=== PATIENT | male | born 1980 | race Caucasian/White ===

== ENCOUNTER 2018-11-27 21:37 | Emergency (ER) | payer SELFPAY ==
[~2018-11-27] VITALS: Ht 180.3 cm; Wt 72.6 kg
[~2018-11-27 21:37] MED LIST: MYSOLINE50 M1 PO
[2018-11-27] MEDS ORDERED: PROSCAR5 MG ORAL (21:39)
[2018-11-27 21:40] VITALS: BP 112/77
--- NOTE | 2018-11-27 21:40 | NUR ---
ED Nurse Note: pt is brought in by ambulance accompanied by [employer]. pt has been drinking alcohol and pills of finasteride. unknown amount. pt has hx of seizure and depression. pt is alert but noted with confusion. unable to carry on a full conversation. VSS.
--- NOTE | 2018-11-27 21:52 | Emergency Room Report ---
History of Present Illness General Chief Complaint: Substance Abuse Source: Patient Present Illness HPI This is a 38-year-old male with psychiatric history. He presents with possible overdose. Few hours ago he texted his mom with a note saying "I am sorry." Mom and friend unable to contact him by calling him. They called 911 wellness check. Please officer have to kicking the door of his apartment to get to him. Patient admits to using alcohol. He told EMS that he took 10 pills. The bottle was unlabeled. He will not tell them what they were for. He said that was prescribed to him. Based on the pill identifier, it was finasteride 1 mg. Patient is very vague in his history. He is just told me that he took the pill because. He has no reason. He would not confirm or deny suicidal thoughts. No other injury. Denies any other drug use other than alcohol. Allergies: Coded Allergies: No Known Allergies (Unverified , 11/27/18) Patient History Past Medical History: see triage record, old chart reviewed, psych hx, depression, reviewed nursing documentation Past Surgical History: none Family History: none Social History: ETOH Immunizations: other Reviewed Nursing Documentation: PMH: Agreed; PSxH: Agreed Nursing Documentation-PMH History Of Psychiatric Problem: Yes - despression, anixety Hx Seizures: Yes Review of Systems ENT: Denies: sore throat Cardiovascular: Denies: chest pain, palpitations Gastrointestinal/Abdominal: Denies: nausea, vomiting, diarrhea Musculoskeletal: Denies: back problems Skin: Denies: rash Psychiatric: Reports: prior hx Neurological: Denies: BAHENA, seizures All Other Systems: negative except mentioned in HPI Physical Exam Vital Signs Date Time Temp Pulse Resp B/P (MAP) Pulse Ox O2 Delivery O2 Flow Rate FiO2 11/27/18 21:30 97.2 86 16 138/98 (111) 98 Room Air Vitals normal Sp02 EP Interpretation: reviewed, normal General Appearance: alert/responsive, no apparent distress, non-toxic Head: normocephalic, atraumatic Eyes: PERRL, EOMI ENT: oropharynx normal Neck: supple/symm/no masses Respiratory: effort normal, no rhonchi, no wheezing Cardiovascular: no murmur, gallop, rub Gastrointestinal: non-tender, no mass, non-distended, no rebound/guarding, normal bowel sounds Musculoskeletal: gait & station normal Neurologic: oriented x3, sensory intact, motor strength/tone normal Psychiatric: other - Depressed affect Skin: no rash, normal palpation Medical Decision Making Diagnostic Impression: Primary Impression: Alcohol intoxication Qualified Codes: F10.920 - Alcohol use, unspecified with intoxication, uncomplicated ER Course Patient presents with altered mental status and questionable overdose/ depression. Alcohol level is very high. I spoke extensively with patient, mother who called from [place] and his brother who came here. Mother was the one who called his friend to check on him because he was hyperventilating and keeps saying that he cannot do this anymore and then his phone went . I suspect that his alcohol level is very high. He admits to having a drinking problem. Has never been in rehab. After a few hours, he is alert and oriented x4. Speech is clear. No ataxia with walking. He does admit to having some withdrawal symptoms when he stopped drinking. He does not want to stay. He will be going home with his brother. His brother said that he will keep an eye on him tonight. He will call rehab center in the morning to get him help. Patient denies suicidal thoughts homicidal thought. There is no evidence of any substance abuse. There is no evidence of any overdose. Patient has a bottle of finasteride. His brother said he is taking finasteride for hair growth. At this moment in time, I see no criteria for 5150. This patient is a chronic risk of self injury due to poor impulse control, limited coping skills, and judgment intermittently impaired by intoxication. I believe that the available clinical evidence to suggest that these characteristics derived primarily from personality disorder and are likely very stable over time. Hospitalization would likely attenuate risk of self-harm only during nursing home period, without lasting risk reduction. Serious self-harm , while possible, would likely be inadvertent, and because of impulsivity, and foreseeable. For these reasons, I do not believe hospitalization would provide meaningful reduction in risk of self-harm. Rhythm Strip Diag. Results EP Interpretation: yes Rate: 80 Rhythm: NSR, no PVC's, no ectopy Last Vital Signs Date Time Temp Pulse Resp B/P (MAP) Pulse Ox O2 Delivery O2 Flow Rate FiO2 11/27/18 21:30 97.2 86 16 138/98 (111) 98 Room Air Status: improved Disposition: HOME, SELF-CARE Condition: Stable Scripts Chlordiazepoxide (Chlordiazepoxide HCl) 25 Mg Capsule 25 MG ORAL THREE TIMES A DAY, #21 CAP 0 Refills Prov: Leroy Morales MD 11/28/18 Additional Instructions: Abstain from alcohol. Follow-up with rehab [facility]. Call your psychiatrist tomorrow to arrange for follow-up. Return if symptoms worsen. Leroy Morales MD Nov 27, 2018 21:52
--- NOTE | 2018-11-27 22:00 | NUR ---
ED Nurse Note: urine and blood sample sent to lab
--- NOTE | 2018-11-27 22:18 | NUR ---
[facility] [place] number [phone]
[2018-11-27 22:21] LABS: APPEARANCE,URINE CLEAR; BILIRUBIN, URINE NEGATIVE (NEGATIVE); COLOR,URINE PALE YELLOW; GLUCOSE, URINE (UA) NEGATIVE (NEGATIVE); KETONES,URINE NEGATIVE (NEGATIVE); LEUKOCYTE ESTERASE ,URINE NEGATIVE (NEGATIVE); NITRITE,URINE NEGATIVE (NEGATIVE); PH,URINE 6 (4.5-8.0); PROTEIN,URINE NEGATIVE (NEGATIVE); UROBILINOGEN,URINE NORMAL MG/DL (0.0-1.0)
[2018-11-27 22:25] LABS: HEMATOCRIT 44.2 % (42.0-52.0); HEMOGLOBIN 15.4 G/DL (14.2-18.0); MEAN CORPUSCULAR VOLUME 101 FL (80-99); PLATELET COUNT 206 K/UL (150-450); RED BLOOD COUNT 4.35 M/UL (4.70-6.10); WHITE BLOOD COUNT 4.6 K/UL (4.8-10.8)
[2018-11-27 22:32] LABS: ANION GAP 11 mmol/L (5-15); BLOOD UREA NITROGEN 8 mg/dL (7-18); CALCIUM 9.2 MG/DL (8.5-10.1); CARBON DIOXIDE 29 MMOL/L (21-32); CHLORIDE 107 MMOL/L (98-107); SODIUM 146 MMOL/L (136-145)
[2018-11-27 22:39] LABS: ALANINE AMINOTRANSFERASE 48 U/L (12-78); ALBUMIN 4.6 G/DL (3.4-5.0); ALBUMIN/GLOBULIN RATIO 1.3 (1.0-2.7); ALKALINE PHOSPHATASE 63 U/L (46-116); ASPARTATE AMINO TRANSFERASE 27 U/L (15-37); BILIRUBIN,TOTAL 0.2 MG/DL (0.2-1.0)
--- NOTE | 2018-11-27 23:41 | NUR ---
ED Nurse Note: pt brother is by bedside.
[2018-11-28 00:09] VITALS: BP 110/72
[2018-11-28] MEDS ORDERED: chlordiazePOXIDE 25mg Cap ORAL ONE (01:00)
[2018-11-28] MEDS ORDERED: LIBRIUM25 MG ORAL (01:05)
[2018-11-28 01:09] VITALS: BP 118/74
--- NOTE | 2018-11-28 01:09 | NUR ---
ER DISCHARGE NOTE: Patient is cleared to be discharged per ERMD, pt is aox4, on room air, with stable vital signs. pt was given dc and prescription instructions, pt was able to verbalize understanding, pt id band and iv site removed without complications. pt is able to ambulate with steady gait. pt took all belongings and left with his friend Zeke.
== END 2018-11-28 01:09 | disposition home or self-care (01) ==
LOC: EDBD 21:37 → EMR 21:55
DX: F10.920 Alcohol use, unspecified with intoxication, uncomplicated (principal); F32.9 Major depressive disorder, single episode, unspecified; F41.9 Anxiety disorder, unspecified
CPT/HCPCS: 36415; 80053; 80307; 81003; 85007; 85025; 99283; G0480; 80329